=== PATIENT | female | born 1960 | race Caucasian/White ===

== ENCOUNTER 2019-01-11 12:18 | Emergency (ER) | payer OTHER, SELFPAY ==
[2019-01-11 12:19] VITALS: BP 141/76; PULSE 77; RESP 17; TEMP 36.4; O2SAT 98; BMI 25.7
--- NOTE | 2019-01-11 12:44 | EKG12_ITS ---
Test Reason : CP Blood Pressure : / mmHG Vent. Rate : 071 BPM Atrial Rate : 071 BPM P-R Int : 144 ms QRS Dur : 076 ms QT Int : 392 ms P-R-T Axes : 038 021 042 degrees QTc Int : 425 ms Normal sinus rhythm Normal ECG Confirmed by DAPHNE HWANG, NANCY ([id number]), assignment editor MARILYN MARCUS ([id number]) on 01/15/2019 9:48:56 AM Referred By: GONZALES
--- NOTE | 2019-01-11 12:48 | RAD_ITS ---
STUDY: X-RAY CHEST REASON FOR EXAM: Female, 58 years old. Chest pain TECHNIQUE: Single AP portable view of the chest. COMPARISON: None. FINDINGS: The lungs are clear and expanded. There is no demonstrated pleural abnormality. Normal size heart. Normal mediastinum and lenin. Normal visualized pulmonary arteries. Normal visualized aortic arch and descending thoracic aorta. Normal visualized thoracic spine. Normal visualized ribs, clavicles, and shoulders. There is no demonstrated abnormality of the visualized soft tissue structures of the upper abdomen. RAD/Chest 1 View (Portable) IMPRESSION: Normal x-ray examination of the chest. Electronically Signed: Royer Avila MD at 13:50 EST , Service support ,
[2019-01-11] MEDS: Aspirin 81 MG TAB.CHEW 324 MG PO (12:49)
[2019-01-11 12:54] LABS: Absolute Lymphocyte Count 3.32 X10^3/uL (0.83-4.51); Absolute Neutrophil Count 6.2 X10^3/uL (2.0-7.7); Basophil# 0.08 X10^3/uL; Basophil% 0.8 % (0-1); Eosinophil# 0.29 X10^3/uL; Eosinophils% 2.8 % (0-5); Hematocrit 43.9 % (37-47); Hemoglobin 14.2 g/dL (12.0-15.0); Lymphocyte # 3.32 X10^3/ul (4.0); Lymphocyte % 31.6 % (19-41); Mean Corp Hgb Conc 32.3 g/dL (32-36); Mean Corpuscular Hgb 29.9 pg (27.0-32.0); Mean Corpuscular Volume 92.4 fL (81-99); Mean Platelet Vol. 9.6 fl (6.2-12.0); Monocyte# 0.63 X10^3/uL; NRBC Flagged by Analyzer 0 % (0-5); Neutrophil # 6.16 X10^3/uL (2.7-7.7); Neutrophil % 58.5 % (47-70); Platelet Count 413 K/mm3 (150-450); RBC Distribution Width CV 13.1 % (11.6-14.6); RBC Distribution Width SD 44.4 fl (35.1-43.9); Red Blood Count 4.75 M/mm3 (4.2-5.4); White Blood Count 10.5 K/mm3 (4.4-11.0)
[2019-01-11 13:06] LABS: Anion Gap 6 (5-15); BUN 16 mg/dL (7-18); BUN/Creat Ratio 16.3 RATIO (10-20); Calcium,Total 9.2 mg/dL (8.5-10.1); Chloride 107 mmol/L (98-107); Creatinine, Serum 0.98 mg/dL (0.55-1.02); EST Glomerular Filtration Rate 62 mL/min (>60); Est Glom Filt Rate - Afr Amer 75 mL/min (>60); Estimated Creatinine Clearance 64.66 ml/min; Glucose 103 mg/dL (74-106); Potassium 3.4 mmol/L (3.5-5.1); Sodium Level 138 mmol/L (136-145)
[2019-01-11 13:18] VITALS: BP 123/64; PULSE 70; RESP 16; O2SAT 100
--- NOTE | 2019-01-11 13:22 | NURSING ---
NO OLD EKGS
--- NOTE | 2019-01-11 13:51 | EKG12_ITS ---
Test Reason : CP REPEAT Blood Pressure : / mmHG Vent. Rate : 052 BPM Atrial Rate : 052 BPM P-R Int : 174 ms QRS Dur : 074 ms QT Int : 430 ms P-R-T Axes : 026 021 032 degrees QTc Int : 399 ms Sinus bradycardia Otherwise normal ECG Confirmed by DAPHNE HWANG, NANCY ([id number]), state editor MARILYN MARCUS ([id number]) on 01/15/2019 9:49:14 AM Referred By: SANDRO Confirmed By:ROMULO SERNA MD
--- NOTE | 2019-01-11 14:47 | ED.DCSUM_ITS ---
History of Present Illness Chief Complaint: Chest Pain Informant: Patient Onset: Today Current Severity: Mild Narrative: Chest pain while at work today. The patient she was at work today when she began to have a sense of chest discomfort that lasted for a few minutes but it made her feel uncomfortable. It resolved spontaneously. She has no history of DC PE or DVT, she has had no fever cough no abdominal pain, she does report a strong family history of father for CAD. She indicates she is currently pain- free, indicates she is able to exercise exert herself and does not experience chest pain, she did not do anything out of ordinary today to cause or trigger the chest discomfort nothing obviously seemed to relieve it Past Medical History - Allergies and Home Meds Allergies/Adverse Reactions: Allergies No Known Allergies Allergy (Verified 01/11/19 12:18) Primary Care Physician: Care Physician,No Primary [Primary Care Provider] - Past Medical History: - Smoking Status: Never smoker Review of Systems ROS: - Is as above unremarkable General: Denies: Chills, Fever, Sweats Eyes: Denies: Visual changes - bilaterally, Diplopia ENT: Denies: Rhinorrhea, Sore throat Cardiovascular: Reports: Chest pain. Denies: Palpitations Respiratory: Denies: Dyspnea, Cough, Dyspnea on exertion Gastrointestinal: Denies: Abdominal pain, Nausea, Vomiting, Diarrhea, Melena, Hematochezia Genitourinary: Denies: Dysuria, Hematuria, Frequency Musculoskeletal: Denies: Back pain, Extremity Pain Skin: Denies: Rash, Wounds Neurological: Denies: Headache, Weakness, Numbness Physical Exam Vital Signs/Narrative: Vital Signs Temp Pulse Resp BP Pulse Ox 01/11/19 13:18 70 16 123/64 H 100 01/11/19 12:19 97.6 F L 77 17 141/76 H 98 General: Well nourished, Well developed, No Acute Distress Head: Normocephalic, Atraumatic Eyes: Perrl, EOMI ENT: Moist mucous membranes, No rhinorrhea Neck: Supple, Nontender Cardiovascular: Regular rate, Regular rhythm, No murmurs Respiratory: No distress, CTA bilaterally, Chest nontender Abdomen: Soft, Nontender, Nondistended, Normal bowel sounds Back: Nontender, Normal Inspection Extremities: Nontender, No edema Skin: Normal color, No rash Neurological: Alert, Oriented x3, Cranial nerves II-XII grossly intact, Normal Strength, Normal Sensation Psychological: Normal affect, Normal Mood Diagnostic/Tx/Re-eval - Medical Decision Making The patient's EKG shows a sinus rhythm rate of about 70, no acute injury pattern intervals all unremarkable, Initial screening work-up with labs troponin etc. were negative on reevaluation she is resting comfortably in the bed she has no recurrence of her chest pain we discussed the differential to include unstable angina acute DC, we discussed inpatient versus outpatient management she does not wish to be admitted she prefers outpatient management, she does agree to stay for repeat troponin EKG that were unremarkable Jw she will require further diagnostic management with her outpatient providers that might include cardiac stress test and she will follow-up with them return for change in symptoms she will take 2 baby aspirin a day until followed up and if any point time she develops any change in her status or chest pain she will return for reevaluation Home stable declined admission Final impression Chest pain resolved ED Disposition - Plan for ED Patient: Instructions: CHEST PAIN, Uncertain Cause Referrals: Care Physician,No Primary [Primary Care Provider] - Additional Instructions: Take 2 baby aspirin a day until seen by your outpatient providers for further management return for change in symptoms
[2019-01-11 15:13] VITALS: BP 112/70; PULSE 61; RESP 18; O2SAT 99
[2019-01-11 16:00] VITALS: BP 104/61; PULSE 63; RESP 16; O2SAT 100
[2019-01-11 16:17] VITALS: BP 104/61; PULSE 55; RESP 12; O2SAT 99
== END 2019-01-11 16:18 | disposition home or self-care (01) ==
LOC: ED 13:09
PROVIDERS: Emergency Provider Emergency Medicine
DX: R07.9 Chest pain, unspecified (principal); Z82.49 Family history of ischemic heart disease and other diseases of the circulatory system
CPT/HCPCS: 36415; 71045; 80048; 84484; 85025; 93005; 99284; A4216

== ENCOUNTER 2020-12-04 08:51 | Emergency (ER) | payer OTHER, SELFPAY ==
[2020-12-04 08:52] VITALS: BP 141/96; PULSE 90; RESP 16; TEMP 37; O2SAT 100; BMI 21.2
--- NOTE | 2020-12-04 09:13 | CT_ITS ---
STUDY: CT BRAIN WITHOUT CONTRAST REASON FOR EXAM: Female, 60 years old. Headache, vision disturbance RADIATION DOSAGE (If Supplied By Facility): CTDIvol = ( 44.99 ) mGy, DLP = ( 796.11 ) mGycm TECHNIQUE: Transaxial CT imaging of the brain was performed without administration of intravenous contrast material. Individualized dose optimization techniques were used for this CT. COMPARISON: No relevant priors. FINDINGS: Normal soft tissue structures. Normal calvarium. There is mild cerebral atrophy with widening of the extra-axial spaces and ventricular dilatation. Normal white matter tracts of the cerebral hemispheres. Normal basal ganglia and thalami. Normal brainstem. Normal cerebellum. There is no intracranial hemorrhage. There are no findings of an acute ischemic infarction. Atherosclerotic calcification of the cavernous portions of the internal carotid arteries bilaterally. Normal visualized paranasal sinuses. CT/Brain/Head without Contrast IMPRESSION: Chronic involutional changes of the brain. Electronically Signed: Larry Valentino MD at 9:59 EDT , Service support ,
--- NOTE | 2020-12-04 09:14 | EKG12_ITS ---
Test Reason : CONFUSION Blood Pressure : / mmHG Vent. Rate : 058 BPM Atrial Rate : 058 BPM P-R Int : 150 ms QRS Dur : 084 ms QT Int : 420 ms P-R-T Axes : 035 018 041 degrees QTc Int : 412 ms Sinus bradycardia Otherwise normal ECG Confirmed by ARIA HWANG, OLIVIA ([id number]), school photograph editor SHERRI HERNANDEZ ([id number]) on 12/06/2020 9:26:12 AM Referred By: WILLIAM Confirmed By:OLIVIA KNAPP MD
--- NOTE | 2020-12-04 09:15 | EDS_ITS ---
HPI History of Present Illness Chief Complaint: Confusion Detail of Chief Complaint: visual disturbance Informant: patient Onset/Context/Timing Onset: Today (within past hour) Context: Sudden Onset Timing: Continuous Current Severity: Gone Maximum Severity: Moderate Worsened by: nothing she noticed Relieved by: nothing in particular Associated Symptoms Associated Symptoms: shaky all over. heart beating faster than normal. Narrative Narrative: Patient states she was driving to work today, she started having a visual disturbance in the road look like it was wavy and moving and it felt abnormal. She has felt weird in her head but does not call with a headache and states it is hard to explain. She states she did not feel dizzy or a sensation of movement or spinning. This did start fairly suddenly right after she had made a turn while driving to work. She denies any loss of vision in either eye or any visual pena.. She denies any diplopia No neck pain. No other pain. She denies any illness at this time but had a minor cold around 3 weeks ago, she was not tested for Covid, she has been vaccinated remotely. She denies any peripheral neurologic symptoms at all today. She was able to walk okay going into work but was feeling better at that point. She has felt shaky ever since and looking at the heart rate monitor on her watch has noticed that her heart rate has gone up into the low 100s, down to the 90s then 80s and back up to around 100 at times, she did not feel palpitations but when she was in the low 100s she could feel that her heart was beating faster than normal. No chest pain or shortness of breath and no associated nausea or vomiting. No hearing disturbance, tinnitus, earache recently or today. No confusion or disorientation, she was just concerned about the visual disturbance mostly. Prior similar symptoms: No Recent Illness/Hospitalization: Yes (minor cold around 3 wks ago) [facility] Medical History (Updated 12/04/20 @ 10:[address] Sergio Mauricio MD) Colonic polyp Home Medications doxylamine succinate 0.5 mg PO QHS PRN 01/11/19 [History Last Taken Unknown] meclizine 25 mg PO Q8H PRN PRN #20 tab 12/04/20 [Rx Last Taken Unknown] Allergy/AdvReac Type Severity Reaction Status Date / Time No Known Allergies Allergy Verified 01/11/19 12:18 Social History Smoking Status: Never smoker ROS ROS ED Constitutional Constitutional ED: Denies chills or fever(s) Eyes Eyes: Denies change in vision or diplopia ENT ENT ED: Denies rhinorrhea or sore throat Cardiovascular Cardiovascular: Denies chest pain or palpitations Respiratory/Chest Respiratory/Chest: Denies cough or dyspnea Gastrointestinal Gastrointestinal: Denies abdominal pain, diarrhea, nausea or vomiting Genitourinary Genitourinary ED: Denies dysuria or hematuria Musculoskeletal Musculoskeletal: Denies back pain or neck pain Integumentary Denies abscess or rash Neurologic Neurologic: Reports as per HPI; Denies headache(s), paresthesias or weakness Psychiatric Psychiatric: Denies anxiety or suicidal thoughts EXAM Physical Exam Const Vital Signs: 12/04/20 08:52 Temperature 98.6 F Temperature Source Temporal Pulse Rate 90 Respiratory Rate 16 Blood Pressure 141/96 H Blood Pressure Mean 111 Pulse Ox 100 Oxygen Delivery Method Room Air Positive well nourished and well developed General Appearance ED: well developed and NAD HEENT Reports EAC's normal, TM's clear, TM's normal bilaterally and moist mucous membranes normocephalic and atraumatic Tympanic Membrane ED: Yes TM's clear Eyes PERRL and EOMs intact bilaterally Eyes Narrative: Fatigable horizontal nystagmus bilaterally, more prominent to the right. No vertical or rotatory nystagmus. Neck full ROM and supple Resp normal respiratory effort and clear to auscultation bilaterally Cardio regular rate, regular rhythm and no murmurs Rate: Negative for tachycardic GI non-tender and non-distended Auscultation: normoactive bowel sounds Palpation: soft Back/Spine no CVA tenderness General Back: other FROM Extremity normal to inspection General Extremety ED: Negative for edema, pulses abnormal or tenderness General Extremity: Negative for edema or pulses abnormal Neuro oriented x3, CN's II-XII intact bilaterally and no sensory deficits noted Neuro Narrative: Normal [id number] and [id number] bilaterally. Negative [place]-Hallpike bilaterally. No aphasia or dysarthria, normal neurologic exam, NIHSS 0. Sensorium / Orientation: awake and alert Motor Exam: strength 5/5 throughout Skin no rashes or lesions noted and no wounds MDM MDM MDM Narrative Medical decision making narrative: This patient does not have classic symptoms for anything in particular but I suspect this was all peripheral vertigo given that the symptoms started right after she made a turn and probably turned her head to some degree, did not include any red flag neurologic symptoms or findings and her exam is normal. Not able to reliably perform a jolt test right now since she is not symptomatic. Screening CT and labs and EKG were obtained, and she was given a dose of meclizine in the meantime and on reevaluation actually felt much better. Her work-up is all normal. Although CT plane is limited for acute ischemic stroke in the acute timeframe, I do not think that is what is going on here. She is given a prescription for meclizine to use as needed only, and advised to follow-up with her doctor. She is comfortable this plan we discussed reasons to return. Lab Data Attestation: I reviewed the patient's lab results. Labs: Laboratory Results - last 24 hr 12/04/20 12/04/20 09:25 09:25 WBC 6.2 RBC 4.39 Hgb 13.2 Hct 40.3 MCV 91.8 MCH 30.1 MCHC 32.8 RDW Std Deviation 43.5 RDW Coeff of Leydi 13.0 Plt Count 343 MPV 9.8 Immature Gran % (Auto) 0.200 Neut % (Auto) 63.4 Lymph % (Auto) 28.2 [place] % (Auto) 5.6 Eos % (Auto) 1.6 Baso % (Auto) 1.0 Absolute Neuts (auto) 4.0 Absolute Lymphs (auto) 1.76 Nucleated RBC % 0 Sodium 142 Potassium 3.6 Chloride 109 H Carbon Dioxide 27.0 Anion Gap 6 BUN 13 Creatinine 0.90 Estim Creat Clear Calc 68.30 Est GFR (MDRD) Af Amer 83 Est GFR (MDRD) Non-Af 68 BUN/Creatinine Ratio 14.5 Glucose 104 Calcium 9.2 Troponin I High Sens 4 Radiography Diagnostic Testing: Clinical Impression(s) from Imaging Studies Brain CT 12/04/20 09:13 IMPRESSION: Chronic involutional changes of the brain. Electronically Signed: Larry Valentino MD at 9:59 EDT , Service support , EKG Initial EKG: Attestation: I personally reviewed and interpreted this EKG as follows: Interpretation: Sinus Rhythm (58) and No Acute Injury Pattern Comments: normal ekg Prior EKG tracings: available for review Prior: Unchanged Discharge Plan Triage Chief Complaint: Confusion ED Provider: Sergio Maurciio Dx/Rx/DC Orders Clinical Impression: Peripheral vertigo Instructions: ED Vertigo, Unspecified Prescriptions: New meclizine [meclizine] 25 MG tablet 25 mg PO Q8H PRN PRN (Reason: Dizziness) Qty: 20 RF: 0 No Action doxylamine succinate 25 MG tablet 0.5 mg PO QHS PRN (Reason: Insomnia) RF: 0 Referrals: Sakshi Moura [Other] - 3-5 Days Disposition Disposition: Home, Self Care
[2020-12-04] MEDS: Meclizine HCl 25 MG Tablet PO (09:33)
[2020-12-04 09:41] LABS: Absolute Lymphocyte Count 1.76 X10^3/uL (0.83-4.51); Basophil# 0.06 X10^3/uL; Eosinophils% 1.6 % (0-5); Hematocrit 40.3 % (37-47); Hemoglobin 13.2 g/dL (12.0-15.0); Lymphocyte # 1.76 X10^3/ul (0.83-4.51); Lymphocyte % 28.2 % (19-41); Mean Corp Hgb Conc 32.8 g/dL (32-36); Mean Corpuscular Hgb 30.1 pg (27.0-32.0); Mean Corpuscular Volume 91.8 fL (81-99); Mean Platelet Vol. 9.8 fl (6.2-12.0); Monocyte# 0.35 X10^3/uL; Monocyte% 5.6 % (0-10); NRBC Flagged by Analyzer 0 % (0-5); Neutrophil # 3.96 X10^3/uL (2.7-7.7); Neutrophil % 63.4 % (47-70); Platelet Count 343 K/mm3 (150-450); RBC Distribution Width SD 43.5 fl (35.1-43.9); Red Blood Count 4.39 M/mm3 (4.2-5.4); White Blood Count 6.2 K/mm3 (4.4-11.0)
[2020-12-04 10:09] LABS: Anion Gap 6 (5-15); BUN 13 mg/dL (7-18); BUN/Creat Ratio 14.5 RATIO (10-20); Calcium,Total 9.2 mg/dL (8.5-10.1); Chloride 109 mmol/L (98-107); EST Glomerular Filtration Rate 68 mL/min (>60); Est Glom Filt Rate - Afr Amer 83 mL/min (>60); Glucose 104 mg/dL (74-106); Potassium 3.6 mmol/L (3.5-5.1); Sodium Level 142 mmol/L (136-145); Troponin-I HS 4 pg/mL (3.0-54.0)
[2020-12-04 11:02] VITALS: BP 133/69; PULSE 56; O2SAT 100
== END 2020-12-04 11:08 | disposition home or self-care (01) ==
PROVIDERS: Emergency Provider Emergency Medicine
DX: H81.399 Other peripheral vertigo, unspecified ear (principal)
CPT/HCPCS: 70450; 80048; 84484; 85025; 93005; 99283